=== PATIENT | male | born 1990 | race Caucasian/White ===

== ENCOUNTER 2022-07-01 08:37 | Emergency (ER) | payer SELFPAY ==
[2022-07-01 08:55] VITALS: BP 137/78; PULSE 91; RESP 18; TEMP 37.6; O2SAT 100
--- NOTE | 2022-07-01 09:13 | ED.GENADULT ---
HPI - General Adult General Chief complaint: Upper Respiratory Infection Stated complaint: flu sx Time Seen by Provider: 07/01/22 09:15 Source: patient Mode of arrival: ambulatory Limitations: no limitations History of Present Illness HPI narrative: 31-year-old male patient presents to the [facility] with complaints of flu-like symptoms for the past 2-3 days. Patient states he has had fevers, body aches, chills. Patient states he has had a sore throat, coughing to the point that it is hurting his chest. Denies any shortness of breath. Patient states he has been taking Tylenol for his symptoms. Patient states that he has not received any influenza or COVID vaccines. Related Data Home Medications Medication Instructions Recorded Confirmed meloxicam 15 mg tablet 15 mg PO DAILY 07/01/22 07/01/22 Allergies Allergy/AdvReac Type Severity Reaction Status Date / Time EVERY SINGLE ANTIBIOTIC Allergy Intermediate HIVES, SOB Uncoded 07/01/22 09:16 Review of Systems Review of Systems: CONSTITUTIONAL: Positive fever, chills, denies sweats. EYES: Denies visual changes, redness, or discharge. ENT: Positive rhinorrhea, congestion, sore throat, denies otalgia. CARDIOVASCULAR: Positive midsternal chest pain with coughing, denies palpitations, or edema. RESPIRATORY: Positive cough, denies dyspnea. GASTROINTESTINAL: Denies abdominal pain, nausea, vomiting, or diarrhea. GENITOURINARY: Denies dysuria or hematuria. SKIN: Denies rash or itching. MUSCULOSKELETAL: Denies back pain, joint pain, or myalgia. NEUROLOGIC: Denies headache, numbness, or weakness. PSYCHIATRIC: Denies anxiety or depression. [facility] Past Medical History Medical History Musculoskeletal disorder Left arm defect Vitiligo Surgical History Surgical History H/O adenoidectomy H/O Spinal surgery History of orthopedic surgery Right knee x2, left elbow Comments At the time of my signature I agree with nursing past medical history, surgical, social, and family history. There is no relevant family history pertinent to the presenting complaint. Exam Narrative: GENERAL: Well-appearing, well-nourished, and in no acute distress. HEAD: Normocephalic, atraumatic. EYES: PERRLA and EOMI. ENT: Nares with erythema and edema noted bilaterally, no rhinorrhea or epistaxis. Mucous membranes moist. Posterior pharynx with no erythema, tonsillar enlargement, exudates lesions present. NECK: Supple. No lymphadenopathy CHEST: Clear to auscultation. No respiratory distress. Patient able talk in clear complete sentences. HEART: Regular rate and rhythm. No murmur heard. Normal peripheral pulses. ABDOMEN: Soft, nontender, nondistended, normal active bowel sounds. EXTREMITIES: Normal range of motion. No edema. SKIN: Warm, dry, no rash. NEURO: No focal deficits. Alert and oriented x3. Course Course Level of Care: Express Care Visit Reevaluation(s) Reevaluation #1: Re-evaluated patient notified him that he is positive today for influenza A. Because he is within the 72 hour timeframe we did offer her antivirals patient has agreed to do antivirals today. Discussed with patient we will prescribe this to him as well as Hollie Springer to help with the cough. Discussed with patient if his symptoms worsen he will need to go the ER for further evaluation. Patient verbalized understanding denies any other questions or concerns. Date: 07/01/22 Time: 09:43 Vital Signs Vital signs: Vital Signs Temperature 37.6 C 07/01/22 08:55 Pulse Rate 91 07/01/22 08:55 Respiratory Rate 18 07/01/22 08:55 Blood Pressure 137/78 07/01/22 08:55 Pulse Oximetry 100 07/01/22 08:55 Oxygen Delivery Room Air 07/01/22 08:55 Temperature 37.6 C 07/01/22 08:55 Pulse Rate 91 07/01/22 08:55 Respiratory Rate 18 07/01/22 08:55 Blood Pressure 137/78 07/01/22 08:55 Pulse
== END 2022-07-01 09:51 | disposition home or self-care (01) ==
PROVIDERS: Emergency Provider Nurse Practitioner Family
DX: J10.1 Influenza due to other identified influenza virus with other respiratory manifestations (principal); Z20.822 Contact with and (suspected) exposure to COVID-19
CPT/HCPCS: 87426; 87804; 99213; C9803; G0463

== ENCOUNTER 2023-01-12 08:00 | Outpatient (CLI) | payer BC, SELFPAY ==
--- NOTE | ~2023-01-12 | XR_ITS ---
EXAMINATION: XR knee RT 3V DATE: 01/12/2023 08:28 INDICATION: Right knee effusion TECHNIQUE: Three views of the right knee were obtained. COMPARISON: None. FINDINGS: Alignment is normal. No fracture or osteochondral lesion. Joint spaces are normal with no e rosions. There is a moderate-sized joint effusion. Soft tissues are unremarkable. IMPRESSION: 1. Moderate size knee joint effusion without acute osseous abnormality. Reviewed, dictated and finalized at location B.
== END 2023-01-12 08:01 | disposition home or self-care (01) ==
LOC: ANHIMG 08:09
DX: M25.461 Effusion, right knee (principal)
CPT/HCPCS: 73562